=== PATIENT | male | born 1975 | race Caucasian/White ===

== ENCOUNTER 2019-06-18 10:29 | Outpatient (CLI) | payer OTHER, SELFPAY ==
--- NOTE | ~2019-06-18 | US_ITS ---
EXAMINATION: US thyroid DATE: 06/18/2019 11:21 INDICATION: Thyrotoxicosis, unspecified without thyrotoxic crisis or storm. TECHNIQUE: Multiple ultrasound images of the thyroid were obtained. COMPARISON: Ultrasound 11/15/2012 FINDINGS: The right thyroid lobe measures 7.2 x 3.1 x 3.7 cm. The left thyroid lobe measures 6.7 x 2.9 x 4.1 c m. The thyroid demonstrates heterogeneous echogenicity and increased vascularity. In the thyroid ist hmus, there is a 13 mm mixed solid and cystic, isoechoic, kpflq-yxcb-ylec nodule with ill-defined mar gin without echogenic foci (TI-RADS TR2). In the left thyroid lobe, there is a 12 mm solid, hypoechoi c, rzmke-qjqu-orwj nodule with ill-defined margin without echogenic foci (TR4). In the left thyroid l obe, there is an 11 mm solid, very hypoechoic, vpcyq-viim-ickf nodule with lobulated margin without e chogenic foci (TR5). There are multiple subcentimeter nodules in the thyroid. IMPRESSION: 1. Worsened multinodular goiter. Ultrasound-guided fine-needle aspiration of the 11 mm left thyroid n odule is recommended. Reviewed, dictated and finalized at location A. IMPRESSION: 1. Worsened multinodular goiter. Ultrasound-guided fine-needle aspiration of th e 11 mm left thyroid nodule is recommended.
== END 2019-06-18 10:30 | disposition home or self-care (01) ==
LOC: ANHIMG 10:34
PROVIDERS: PCP Internal Medicine; Visit Provider Physician Assistant
DX: E05.90 Thyrotoxicosis, unspecified without thyrotoxic crisis or storm (principal); E04.2 Nontoxic multinodular goiter
CPT/HCPCS: 76536

== ENCOUNTER 2019-07-03 12:45 | Outpatient (CLI) | payer OTHER, SELFPAY ==
--- NOTE | ~2019-07-03 | US_ITS ---
EXAMINATION: US FNA w image guidance, US FNA additional DATE: 07/03/2019 13:54 INDICATION: Thyroid nodules TECHNIQUE: A time-out was performed to verify the patient's name, date of , and procedure to be performed . The procedure and its benefits and risks were discussed with the patient. Risks specifically discus sed included bleeding and infection. The patient understood the risks and agreed to proceed. The neck was prepped and draped in the usual sterile manner. Attention was first turned to the left thyroid n odule. 3 mL 1% lidocaine was used for local anesthesia. 6 passes were made with a 25G needle into th e lesion. Appropriate needle location was documented with continuous sonographic guidance. Potential centered to the nodule at the right side of the thyroid isthmus. Additional 2 mm 1% lidocaine was us ed for local anesthesia. 6 passes were made with a 25G needle into the lesion. Appropriate needle lo cation was documented with continuous sonographic guidance. Sterile bandages were applied. There wer e no immediate complications. FINDINGS: Grayscale ultrasound images demonstrate biopsy needles advanced into first a 1.4 cm solid hypoechoic nodule in the inferior left thyroid lobe. Subsequent images demonstrate biopsy needles advanced into the 1.2 cm mixed solid and cystic nodule at the right side of the thyroid isthmus. IMPRESSION: 1. Successful ultrasound-guided fine needle aspiration of 1.4 cm solid left thyroid nodule. 2. Successful ultrasound-guided fine-needle aspiration of a 1.2 cm mixed solid and cystic nodule at t he right side of the thyroid isthmus. Reviewed, dictated and finalized at location A. IMPRESSION: 1. Successful ultrasound-guided fine needle aspiration of 1.4 cm solid left th yroid nodule. 2. Successful ultrasound-guided fine-needle aspiration of a 1.2 cm mixed solid and cystic nodule at the right side of the thyroid isthmus.
== END 2019-07-03 12:46 | disposition home or self-care (01) ==
PROVIDERS: PCP Internal Medicine; Visit Provider Physician Assistant
DX: E05.90 Thyrotoxicosis, unspecified without thyrotoxic crisis or storm (principal)
CPT/HCPCS: 10005; 10006; 88108; 88173; 88305

== ENCOUNTER 2020-01-22 10:55 | Outpatient (CLI) | payer OTHER, SELFPAY ==
--- NOTE | ~2020-01-22 | XR_ITS ---
XR lumbar spine 2-3V DATE: 01/22/2020 11:14 INDICATION: Chronic low back pain. No injury. TECHNIQUE: AP, lateral, coned lateral lumbosacral views COMPARISON: None FINDINGS: There is grade 1 anterolisthesis at L5-S1. L5 pars interarticularis defects cannot be defin itively excluded. Consider oblique lumbar spine radiograph for CT lumbar spine for further evaluation of this possibility as clinically appropriate. Mild degenerative disc disease at L3-4, L4-5 and L5-S1. No fracture or bone destruction is detected. The included lower thoracic and lumbar pedicles are inta ct. The sacroiliac joints appear normal. IMPRESSION: Minimal grade 1 anterolisthesis at L5-S1; consider oblique lumbar spine radiographs or CT to evaluate for pars intra-articular is defects as clinically appropriate Mild degenerative disease at the mid to lower lumbar area Reviewed, dictated and finalized at location A. TEGY ANALYST IMPRESSION: Minimal grade 1 anterolisthesis at L5-S1; consider oblique lumbar s pine radiographs or CT to evaluate for pars intra-articular is defects as clini adriana appropriate Mild degenerative disease at the mid to lower lumbar area
== END 2020-01-22 10:56 | disposition home or self-care (01) ==
LOC: ANHIMG 11:00
PROVIDERS: PCP Internal Medicine; Visit Provider Internal Medicine
DX: M54.5 Low back pain (principal)
CPT/HCPCS: 72100

== ENCOUNTER 2020-02-22 00:38 | Outpatient (CLI) | payer OTHER, SELFPAY ==
[2020-02-22 20:15] LABS: SARS-CoV-2 RNA PCR Negative
== END 2020-02-22 00:39 | disposition home or self-care (01) ==
LOC: ANHCOVIDDT 00:38
PROVIDERS: PCP Internal Medicine; Visit Provider Internal Medicine Gastroenterology
DX: Z01.818 Encounter for other preprocedural examination (principal); Z20.828 Contact with and (suspected) exposure to other viral communicable diseases
CPT/HCPCS: 87635; C9803; U0003

== ENCOUNTER 2020-02-25 00:50 | Day surgery (SDC) | payer OTHER, SELFPAY ==
[2020-02-20 14:27] VITALS: BMI 23.9
[2020-02-25 06:21] VITALS: BP 131/84; PULSE 82; RESP 16; TEMP 36.7; O2SAT 100
[2020-02-25] MEDS: LACTATED RINGERS 1,000 ML 150 ML IV CONT (06:35)
--- NOTE | 2020-02-25 06:42 | WPDANESEPPF ---
Anes - Initial Pre Proc Eval Procedure: Operation Date: 02/25/20 07:30 Proposed Procedures p Esophagogastroduodenoscopy - David Auguste MD Date/Time: 02/25/20 06:42 Surgeon: David Auguste MD Pre Op Diagnosis: GERD Patient Data Age: 44 Gender: M Height: 6 ft Weight: 77.8 kg Last Vital Signs Temp 36.7 C 02/25/20 06:21 Pulse 82 02/25/20 06:21 Resp 16 02/25/20 06:21 BP 131/84 02/25/20 06:21 Pulse Ox 100 02/25/20 06:21 Allergies Allergy/AdvReac Type Severity Reaction Status Date / Time gluten Allergy Severe Gastrointestinal Verified 02/25/20 06:20 Upset Home Medications Medication Instructions Recorded Confirmed Type ergocalciferol (vitamin D2) 1,250 mcg PO WEEKLY 02/20/20 02/20/20 History methimazole 5 mg PO DAILY 02/20/20 02/20/20 History multivit,calc,bxr-TT-L7-lycop 1 tablet PO DAILY 02/20/20 02/20/20 History [One-A-Day Men's Complete] omeprazole 20 mg PO DAILY 02/20/20 02/25/20 History Patient hx anesthesia problems: none Family hx anesthesia problems: none PMFSH Past Medical History Medical History Anxiety Marijuana use Family History Family History Other Diabetes mellitus Family history of lung cancer Social History Social History Years smoked: 20 Smoking status: Current every day smoker Tobacco type: cigarettes Alcohol intake: current Substance use: current Substance use type: former substance user Other substance usage details: DAILY MARIJUANA Living arrangements: alone Spiritual care concerns: No Anes - Eval Final PreProcedure Day of Procedure 02/25/20 06:42 Patient weight: normal Heart: regular rate and rhythm Lungs: clear to auscultation Airway: Mallampati scale class 1 Neurological: alert and oriented Last oral intake: >/= 8 hours ASA classification: II Emergent: no Anesthetic plan: proceed Anesthesia type and monitoring: general GIVS and standard monitoring Informed Consent: The patient's anesthetic plan and its attendant risks and benefits were discussed with the patient/family/POA. Questions were solicited and answers provided to the satisfaction of the patient/family/POA.
[2020-02-25] MEDS: BENZOCAINE (*SP) 60 ML SPRAY CAN (HURRICAINE) 1 SPRAY MUCOUS MEM (07:34)
--- NOTE | 2020-02-25 07:40 | WPDGICN ---
Assessment and Plan Assessment and plan (1) Epigastric abdominal pain: Code(s): R10.13 - Epigastric pain Status: Acute Assessment and Plan: Patient has abdominal pain is burning in nature. Dyspepsia is possible. Irritable bowel syndrome cannot be excluded. Agree with continuing omeprazole 20 mg p.o. daily. Anti-reflux measures are encourage. Fiber supplementation may also be of some benefit. Patient is trying probiotics which are safe but of uncertain benefit. An EGD will be performed and further recommendations forthcoming. GI Consult Note Consult date/time: 02/25/20 07:40 HPI: Juan Mcnamara is a 44 year old male Seen in evaluation at the request of Dr. Howard. patient has a history of rather vague diffuse abdominal pain that began in November. Pain is variously described as burning that occurs intermittently. Often after eating. He was started on omeprazole which seems to have helped his pain to a significant degree. Additionally is started probiotics for possible irritable bowel syndrome. Patient denies any bleeding. His symptoms appear to be a burning pain in the mid abdomen. His history is very confusing however. Patient presents for EGD because of his complex history. Review of Systems Review of Systems: All systems reviewed & are unremarkable except as noted in HPI and below PMFSH Past Medical History Medical History Anxiety Marijuana use Family History Family History Other Diabetes mellitus Family history of lung cancer Social History Social History Years smoked: 20 Smoking status: Current every day smoker Tobacco type: cigarettes Alcohol intake: current Substance use: current Substance use type: former substance user Other substance usage details: DAILY MARIJUANA Living arrangements: alone Spiritual care concerns: No Meds Home Medications and Allergies Home Medications Medication Instructions Recorded Confirmed Type ergocalciferol (vitamin D2) 1,250 mcg PO WEEKLY 02/20/20 02/20/20 History methimazole 5 mg PO DAILY 02/20/20 02/20/20 History multivit,calc,uju-JN-I7-lycop 1 tablet PO DAILY 02/20/20 02/20/20 History [One-A-Day Men's Complete] omeprazole 20 mg PO DAILY 02/20/20 02/25/20 History Allergies Allergy/AdvReac Type Severity Reaction Status Date / Time gluten Allergy Severe Gastrointestinal Verified 02/25/20 06:20 Upset Vital Signs Vital Signs - 24 hr 02/25/20 06:21 Temperature 98.1 F Pulse Rate 82 Respiratory Rate 16 Blood Pressure 131/84 Pulse Oximetry 100 Exam Narrative: Exam Narrative: Physical exam reveals patient be alert. Vital signs stable. He is anicteric. Lungs are clear to auscultation and percussion. Heart is without murmur or extra sounds. Abdominal exam bowel sounds are present soft nontender with no organomegaly. Digital external rectal exam is normal.
[2020-02-25 07:43] VITALS: BP 108/75; PULSE 68; RESP 14; O2SAT 100
[2020-02-25 07:53] VITALS: BP 112/80; PULSE 67; RESP 20; O2SAT 100
[2020-02-25 08:03] VITALS: BP 126/87; PULSE 70; RESP 14; O2SAT 100
== END 2020-02-25 08:31 | disposition home or self-care (01) ==
PROVIDERS: PCP Internal Medicine; Visit Provider Internal Medicine Gastroenterology
PROC: 0DJ08ZZ Inspection of Upper Intestinal Tract, Via Natural or Artificial Opening Endoscopic (ICD-10-PCS; CPT 43235; principal; 2020-02-25 07:30)
DX: K21.9 Gastro-esophageal reflux disease without esophagitis (principal); K22.70 Barrett's esophagus without dysplasia; F41.9 Anxiety disorder, unspecified; F12.10 Cannabis abuse, uncomplicated; F17.210 Nicotine dependence, cigarettes, uncomplicated; R10.13 Epigastric pain
CPT/HCPCS: 43239; 87635; 88305; C9803; J2704; J7120; U0003

== ENCOUNTER → 2020-04-01 14:24 | Outpatient (CLI) | payer OTHER, SELFPAY ==
--- NOTE | ~2020-04-01 | MR_ITS ---
EXAMINATION: MR lumbar spine wo con DATE: 04/01/2020 15:21 INDICATION: Low back pain. TECHNIQUE: Magnetic resonance imaging (MRI) of the lumbar spine was performed without intravenous con trast. Sequences included sagittal T2-weighted FSE, sagittal T2-weighted FS FSE, sagittal T1-weighted FSE, and axial T2-weighted FSE. COMPARISON: Lumbar spine radiographs 01/22/2020 FINDINGS: There is 3 mm anterolisthesis of L5 on S1. There are chronic bilateral L5 pars defects. The re are Schmorl's nodes at all levels. There is mildly decreased disc height at L3-L4. The distal spin al cord signal intensity is normal. The conus medullaris is at T12-L1. The following disc levels are specifically discussed: L1-L2: The disc does not extend beyond the endplate margin. There is mild left facet joint osteoarthr itis. There is no neural foraminal stenosis. There is no central canal stenosis. L2-L3: The disc does not extend beyond the endplate margin. There is mild bilateral facet joint osteo arthritis. There is no neural foraminal stenosis. There is no central canal stenosis. L3-L4: The disc is bulging. There is mild bilateral facet joint osteoarthritis. There is mild bilater al neural foraminal stenosis. There is mild central canal stenosis. L4-L5: The disc does not extend beyond the endplate margin. There is mild right facet joint osteoarth ritis. There is no neural foraminal stenosis. There is no central canal stenosis. L5-S1: There is a right subarticular zone extrusion. There is mild bilateral facet joint osteoarthrit is. There is mild bilateral neural foraminal stenosis. There is mild central canal stenosis. IMPRESSION: 1. Mild lumbar spondylosis. 2. Chronic bilateral L5 pars defects with grade 1 anterolisthesis of L5 on S1. Reviewed, dictated and finalized at location B. TECHNIC ASSEMBLER
--- NOTE | ~2020-04-01 | XR_ITS ---
EXAMINATION:XR cervical spine min 6V DATE: 04/01/2020 15:26 INDICATION: Neck pain TECHNIQUE: AP, lateral in neutral, flexion, extension, bilateral oblique, lateral swimmers and odonto id views of the cervical spine are provided. COMPARISON: None FINDINGS: Alignment is normal. There is no laxity with flexion or extension. The odontoid is intact. No fracture is identified. Vertebral body heights and disk spaces are normal. Prevertebral soft tissu es are normal. IMPRESSION: 1. No acute osseous abnormality. Reviewed, dictated and finalized at location A. SUPERVISOR
== END ==
PROVIDERS: PCP Internal Medicine; Visit Provider Internal Medicine
DX: M47.896 Other spondylosis, lumbar region (principal)
CPT/HCPCS: 72052; 72148

== ENCOUNTER → 2020-06-03 07:41 | Outpatient (CLI) | payer OTHER, SELFPAY ==
--- NOTE | ~2020-06-03 | MR_ITS ---
EXAMINATION: MR thoracic spine wo con EXAM DATE: 06/03/2020 08:27 INDICATION: Mid back pain, left shoulder pain. TECHNIQUE: Multi-sequential, multiplanar MR images of the thoracic spine were obtained without contra st. Sagittal T1, T2, T2 fat saturation, axial T2 weighted images reviewed. There is no prior study for comparison. FINDINGS: There is small focal syrinx posterior to the T6 vertebral body measuring 2 cm transverse di mension by about 6 mm in length. No evidence of underlying spinal cord mass lesion on this noncontras t study. Spinal cord signal intensity is otherwise normal. There is no thoracic scoliosis. Only mild mid and upper thoracic disc disease. Thoracic central canal and neural foramen are widely patent. Camelia dence of mild thoracic facet arthropathy. There are no suspicious marrow signal abnormalities. Parasp inal soft tissue is unremarkable. Incidental goiter. IMPRESSION: 1. Tiny midthoracic syrinx. 2. Mild thoracic spondylosis without stenosis. 3. Goiter. Reviewed, dictated and finalized at location A.
== END ==
PROVIDERS: PCP Internal Medicine; Visit Provider Nurse Practitioner Adult Health
DX: E04.9 Nontoxic goiter, unspecified (principal); M47.894 Other spondylosis, thoracic region
CPT/HCPCS: 72146

== ENCOUNTER 2020-08-26 10:32 | Outpatient (CLI) | payer OTHER, SELFPAY ==
--- NOTE | ~2020-08-26 | US_ITS ---
EXAMINATION: US thyroid EXAM DATE: 08/26/2020 11:21 INDICATION: Goiter. Previous biopsy. TECHNIQUE: Multiple grayscale and Doppler images of the thyroid were obtained (by a technologist who performed the scan) and subsequently reviewed. Individual nodules and recommendations may be reporte d in accordance with TI-RADS system as designated by the 2017 ACR White Paper TI-RADS committee. The re is no prior study for comparison. FINDINGS: Moderately diffusely heterogeneous and hypervascularity thyroid echotexture. The right thyroid lobe m easures 6.4 x 3.9 x 2.7 cm, the left measuring 6.3 x 3.6 x 2.7 cm, moderately enlarged. Several focal regions were measured as nodules. Patient had a biopsy 2020 of a very hypoechoic left thyroid nodule not specifically identify today. T here is a focal isoechoic region in the right thyroid lobe which was measured today and not on previo us studies, but this is isoechoic to the thyroid parenchyma, uncertain whether or not this is a discr ete nodule but region measured at 2.6 x 1.9 x 2.4 cm. Similar-appearing region was measured on the le ft at 1.7 x 1.8 x 1.6 cm. If these were considered nodules, would be category TR 3. IMPRESSION: Enlarged hypervascular heterogeneous thyroid with focal isoechoic regions were measured b ut were not indicated as nodules on prior study. These may just be heterogeneous lobulations of patie nt's goiter. Consider one-year follow-up ultrasound. Reviewed, dictated and finalized at location B. IMPRESSION: Enlarged hypervascular heterogeneous thyroid with focal isoechoic r egions were measured but were not indicated as nodules on prior study. These ma y just be heterogeneous lobulations of patient's goiter. Consider one-year foll ow-up ultrasound.
== END 2020-08-26 10:33 | disposition home or self-care (01) ==
PROVIDERS: PCP Internal Medicine; Visit Provider Internal Medicine Endocrinology, Diabetes & Metabolism
DX: E04.9 Nontoxic goiter, unspecified (principal)
CPT/HCPCS: 76536

== ENCOUNTER 2021-07-20 15:27 | Outpatient (CLI) | payer BC, SELFPAY ==
--- NOTE | ~2021-07-20 | US_ITS ---
EXAMINATION: US thyroid DATE: 07/20/2021 16:25 INDICATION: Hyperthyroidism TECHNIQUE: Multiple ultrasound images of the thyroid were obtained. COMPARISON: 08/26/2020 FINDINGS: The right thyroid lobe measures 7.6 x 2.8 x 3.8 cm. The left thyroid lobe measures 7.3 x 3.0 x 5.7 c m. The thyroid isthmus measures 1.3 cm thickness. There is diffuse heterogeneous echogenicity with co arsened echotexture and increased vascular flow throughout both thyroid lobes. No significant interva l change in a 2.2 cm wider than tall solid isoechoic nodule with ill-defined margins at the deep righ t thyroid lobe (TI-RADS 3, mildly suspicious , FNA if >=2.5 cm, annual followup is >=1.5 cm). Similar appearing 3.1 cm wider than tall solid isoechoic TI RADS 3 nodule with ill-defined margins in the de ep inferior left thyroid lobe similar location as a 1.4 cm nodule which was biopsied on 07/03/2019. IMPRESSION: 1. Enlarged heterogeneous and hypervascular thyroid with increase in size of a TI RADS 3 nodule at th e inferior left thyroid which was previously biopsied on 07/03/2019. Given the significant interval in crease in size would consider rebiopsy. 2. No interval change in a 2.2 cm TI RADS 3 right thyroid nodule which remains below size criteria fo r biopsy and would recommend continued one-year follow-up ultrasound. Reviewed, dictated and finalized at location A. IMPRESSION: 1. Enlarged heterogeneous and hypervascular thyroid with increase in size of a TI RADS 3 nodule at the inferior left thyroid which was previously biopsied on 07/03/2019. Given the significant interval increase in size would consider rebio psy. 2. No interval change in a 2.2 cm TI RADS 3 right thyroid nodule which remains below size criteria for biopsy and would recommend continued one-year follow-up ultrasound.
== END 2021-07-20 15:28 | disposition home or self-care (01) ==
LOC: ANHIMG 15:29
PROVIDERS: PCP Internal Medicine; Visit Provider Internal Medicine Endocrinology, Diabetes & Metabolism
DX: E05.90 Thyrotoxicosis, unspecified without thyrotoxic crisis or storm (principal)
CPT/HCPCS: 76536

== ENCOUNTER 2021-10-20 12:27 | Outpatient (CLI) | payer BC, SELFPAY ==
--- NOTE | ~2021-10-20 | US_ITS ---
EXAMINATION: US FNA w image guidance DATE: 10/20/2021 14:10 INDICATION: Left thyroid nodule. TECHNIQUE: The procedure and its benefits and risks were discussed with the patient. Risks specifically discusse d included bleeding. The patient verbalized understanding of the risks and agreed to proceed. The nec k was prepped and draped in the usual sterile manner. 1% lidocaine was used for local anesthesia. 6 passes were made with a 25G needle into the lesion under ultrasound guidance. There were no immedia te complications. FINDINGS: Grayscale ultrasound images demonstrate needles advanced into a 3.1 cm nodule in left thyroid lobe fo r biopsy. IMPRESSION: 1. Ultrasound-guided fine needle aspiration of a left thyroid nodule. Reviewed, dictated and finalized at location A.
== END 2021-10-20 12:28 | disposition home or self-care (01) ==
PROVIDERS: PCP Internal Medicine; Visit Provider Otolaryngology
DX: E04.1 Nontoxic single thyroid nodule (principal)
CPT/HCPCS: 10005; 88173; 88305

== ENCOUNTER 2022-08-16 02:05 | Day surgery (SDC) | payer BC, SELFPAY ==
[2022-08-10 12:27] VITALS: BMI 25.1
[2022-08-16 07:49] VITALS: BP 136/99; PULSE 63; RESP 18; TEMP 36.6; O2SAT 99
--- NOTE | 2022-08-16 07:52 | P.PNAN_ITS ---
Anes - Initial Pre Proc Eval Procedure: Operation Date: 08/16/22 09:15 Proposed Procedures p Esophagogastroduodenoscopy - David Auguste MD Date/Time: 08/16/22 07:52 Surgeon: David Auguste MD Pre Op Diagnosis: GERD Patient Data Age: 46 Gender: M Height: 1.83 m Weight: 81.8 kg Last Vital Signs Temp 36.6 C 08/16/22 07:49 Pulse 63 08/16/22 07:49 Resp 18 08/16/22 07:49 BP 136/99 H 08/16/22 07:49 Pulse Ox 99 08/16/22 07:49 O2 Del Method Room Air 08/16/22 07:49 Allergies Allergy/AdvReac Type Severity Reaction Status Date / Time gluten Allergy Severe Gastrointestinal Verified 08/16/22 07:48 Upset Home Medications Medication Instructions Recorded Confirmed Type ergocalciferol (vitamin D2) 1,250 1,250 mcg PO WEEKLY 02/20/20 08/10/22 History mcg (50,000 unit) capsule methimazole 5 mg tablet 5 mg PO DAILY 02/20/20 08/10/22 History multivit,calc,mins-folic 240 1 tablet PO DAILY 02/20/20 08/10/22 History mcg-vit K1 30 mcg-lycopene 300 mcg tablet (One-A-Day Men's Complete) omeprazole 20 mg capsule,delayed 20 mg PO DAILY 02/20/20 08/10/22 History release Patient hx anesthesia problems: none Family hx anesthesia problems: none Results Review: All pre-operative results and documents have been reviewed as part of the pre- operative evaluation. [facility] Past Medical History Medical History (Updated 08/16/22 @ 07:53 by Jose Turk MD) Anxiety Chronic GERD HTN (hypertension) Marijuana use Osteoarthritis Family History Family History Other Diabetes mellitus Family history of lung cancer Social History Social History Years smoked: 20 Smoking status: Former smoker Tobacco type: cigarettes Alcohol intake: current Alcohol use details: socially Substance use: current Substance use type: marijuana Other substance usage details: medical card for back pain Living arrangements: alone Spiritual care concerns: No Anes - Eval Final PreProcedure Day of Procedure 08/16/22 07:52 Patient weight: normal Heart: regular rate and rhythm Lungs: clear to auscultation Airway: Mallampati scale class 1 Neurological: alert and oriented Last oral intake: >/= 8 hours ASA classification: II Emergent: no Anesthetic plan: proceed Anesthesia type and monitoring: general GIVS and standard monitoring Results Review: All pre-operative results and documents have been reviewed as part of the pre- operative evaluation. Informed Consent: The patient's anesthetic plan and its attendant risks and benefits were discussed with the patient/family/POA. Questions were solicited and answers provided to the satisfaction of the patient/family/POA.
[2022-08-16] MEDS: LACTATED RINGERS 1,000 ML 150 ML IV CONT (08:05)
--- NOTE | 2022-08-16 08:55 | P.HP_ITS ---
History of Present Illness History of Present Illness Consent: Risks, benefits, and alternatives have been discussed and questions answered. Patient agrees to proceed with procedure. Chief complaint: Graham's Esophagus Narrative: Christo Mcnamara is a 46 year old male Presents for EGD. Patient has a history of Graham's esophagus. Identified 3 years ago time of endoscopy. Patient's previous heartburn is resolved and doing very well taking omeprazole 20mg p.o. daily. He has infrequent mid abdominal indigestion. Patient presents today for surveillance screening EGD. Review of Systems Review of Systems: Review of systems noncontributory. [facility] Past Medical History Medical History (Updated 08/16/22 @ 08:57 by David Auguste MD) Anxiety Chronic GERD HTN (hypertension) Marijuana use Osteoarthritis Family History Family History Other Diabetes mellitus Family history of lung cancer Social History Social History Years smoked: 20 Smoking status: Former smoker Tobacco type: cigarettes Alcohol intake: current Alcohol use details: socially Substance use: current Substance use type: marijuana Other substance usage details: medical card for back pain Living arrangements: alone Spiritual care concerns: No Meds Home Medications and Allergies Home Medications Medication Instructions Recorded Confirmed Type ergocalciferol (vitamin D2) 1,250 1,250 mcg PO WEEKLY 02/20/20 08/10/22 History mcg (50,000 unit) capsule methimazole 5 mg tablet 5 mg PO DAILY 02/20/20 08/10/22 History multivit,calc,mins-folic 240 1 tablet PO DAILY 02/20/20 08/10/22 History mcg-vit K1 30 mcg-lycopene 300 mcg tablet (One-A-Day Men's Complete) omeprazole 20 mg capsule,delayed 20 mg PO DAILY 02/20/20 08/10/22 History release Allergies Allergy/AdvReac Type Severity Reaction Status Date / Time gluten Allergy Severe Gastrointestinal Verified 08/16/22 07:48 Upset Vital Signs Vital Signs - 24 hr 08/16/22 07:49 Temperature 97.9 F Pulse Rate 63 Respiratory Rate 18 Blood Pressure 136/99 H Pulse Oximetry 99 Oxygen Delivery Room Air Exam Narrative: Physical exam reveals patient to be alert. Vital signs stable. HEENT exam is unremarkable. Patient is anicteric. Lungs are clear to auscultation and percussion. Heart is without murmur or extra sounds. Abdomen bowel sounds are present soft nontender with no organomegaly. Assessment and Plan Assessment and plan (1) Graham's esophagus: Code(s): K22.70 - Graham's esophagus without dysplasia Status: Acute Assessment and Plan: patient with Graham's esophagus. History of underlying GE reflux disease. Currently felt stable on omeprazole 20mg p.o. daily. Plan to continue anti- reflux measures. Follow-up EGD advised at 3 year intervals for surveillance.
[2022-08-16 09:16] VITALS: BP 108/67; PULSE 66; RESP 12; O2SAT 99
[2022-08-16 09:26] VITALS: BP 114/75; PULSE 62; RESP 16; O2SAT 100
[2022-08-16 09:36] VITALS: BP 118/89; PULSE 64; RESP 18; O2SAT 100
== END 2022-08-16 09:48 | disposition home or self-care (01) ==
PROVIDERS: PCP Internal Medicine; Visit Provider Internal Medicine Gastroenterology
PROC: 0DJ08ZZ Inspection of Upper Intestinal Tract, Via Natural or Artificial Opening Endoscopic (ICD-10-PCS; CPT 43235; principal; 2022-08-16 09:15)
DX: K22.70 Barrett's esophagus without dysplasia (principal); K21.9 Gastro-esophageal reflux disease without esophagitis; I10 Essential (primary) hypertension; F41.9 Anxiety disorder, unspecified; F12.90 Cannabis use, unspecified, uncomplicated; Z87.891 Personal history of nicotine dependence
CPT/HCPCS: 43239; 88305; J2704; J7120

== ENCOUNTER 2022-11-17 08:00 | Outpatient (CLI) | payer BC, SELFPAY ==
--- NOTE | ~2022-11-17 | US_ITS ---
EXAMINATION: US thyroid DATE: 11/17/2022 08:39 INDICATION: Thyroid nodule. TECHNIQUE: Multiple ultrasound images of the thyroid were obtained. COMPARISON: Ultrasound 07/20/2021 FINDINGS: The right thyroid lobe measures 5.4 x 2.1 x 3.4 cm. The left thyroid lobe measures 5.9 x 2.7 x 3.6 c m. The thyroid is diffusely heterogeneous and hypoechoic. In the left thyroid lobe, there is a 3.0 c m solid, hypoechoic, wider than tall nodule with lobulated margin without echogenic foci (TI-RADS TR4 ), stable from 10/20/2021 and biopsy was benign. IMPRESSION: 1. Stable thyroid nodule. Biopsy on 10/21/2019 was benign. 2. Heterogeneous, hypervascular thyroid, consistent with chronic lymphocytic (Veronica) thyroiditis versus Graves disease. Reviewed, dictated and finalized at location E. IMPRESSION: 1. Stable thyroid nodule. Biopsy on 10/21/2019 was benign. 2. Heterogeneous, hypervascular thyroid, consistent with chronic lymphocytic (H ashimoto) thyroiditis versus Graves disease.
== END 2022-11-17 08:01 | disposition home or self-care (01) ==
PROVIDERS: PCP Internal Medicine; Visit Provider Nurse Practitioner Family
DX: E04.1 Nontoxic single thyroid nodule (principal)
CPT/HCPCS: 76536

== ENCOUNTER 2023-12-12 09:34 | Outpatient (CLI) | payer BC, SELFPAY ==
--- NOTE | ~2023-12-12 | US_ITS ---
EXAMINATION: US thyroid DATE: 12/12/2023 10:16 INDICATION: Thyroid nodule. TECHNIQUE: Multiple ultrasound images of the thyroid were obtained. COMPARISON: Ultrasound 11/17/2022 FINDINGS: The right thyroid lobe measures 7.2 x 3.7 x 4.3 cm. The left thyroid lobe measures 7.3 x 3.8 x 4.5 c m. The thyroid is diffusely heterogeneous and hypoechoic with increased vascularity. No discrete nod ule. IMPRESSION: 1. Heterogeneous, hypervascular thyroid, consistent with chronic lymphocytic (Veronica) thyroiditis. Reviewed, dictated and finalized at location A. IMPRESSION: 1. Heterogeneous, hypervascular thyroid, consistent with chronic lymphocytic (H ashimoto) thyroiditis.
== END 2023-12-12 09:35 | disposition home or self-care (01) ==
PROVIDERS: PCP Internal Medicine; Visit Provider Nurse Practitioner Family
DX: E04.1 Nontoxic single thyroid nodule (principal)
CPT/HCPCS: 76536